=== PATIENT | female | born 1990 | race Caucasian/White ===

== ENCOUNTER 2016-10-02 08:35 | Emergency (ER) | payer MEDICAID ==
[2015-12-07 12:54] VITALS: BMI 35.4
[~2016-10-02 08:35] MED LIST: IBUPROFEN600 MG PO; PERCOCET 5-3251 TAB PO
[2016-10-02 09:13] LABS: BASOPHILS 0.1 % (0-2); EOSINOPHILS 0.9 % (0-7); HEMATOCRIT 38.4 % (36.0-48.0); HEMOGLOBIN 12.6 g/dL (12-16); IMMATURE GRANULOCYTES 0.3 % (0-5); LYMPHOCYTES 22.8 % (15-50); MCH 30.8 pg (26.0-34.0); MCHC 32.8 g/dL (31.0-37.0); MCV 93.9 fL (80.0-100.0); MEAN PLATELET VOLUME 9.2 fL (7.4-10.4); MONOCYTES 6.1 % (2-11); NEUTROPHILS 69.8 % (40-80); RBC 4.09 10x6/uL (4.00-5.40); RDW 13.4 % (11.5-14.5); WBC 10.8 10x3/uL (4.8-10.8)
[2016-10-02 09:16] LABS: PLATELET COUNT 609 10x3/uL (130-400)
[2016-10-02 09:20] LABS: HCG SERUM NEGATIVE (NEGATIVE)
[2016-10-02 09:25] LABS: ALBUMIN 3.2 g/dL (3.4-5.0); ALKALINE PHOSPHATASE 123 U/L (46-116); ALT (SGPT) 94 U/L (10-68); BILIRUBIN - TOTAL 0.35 mg/dL (0.2-1.3); CALC OSMOLALITY 277 mosm/kg (275-300); CALCIUM 8.7 mg/dL (8.5-10.1); CARBON DIOXIDE 26.6 mmol/L (21.0-32.0); CHLORIDE - SERUM 101 mmol/L (98-107); CREATININE - SERUM 0.9 mg/dL (0.6-1.3); GLUCOSE 125 mg/dL (74-106); POTASSIUM - SERUM 3.3 mmol/L (3.5-5.1); PROTEIN - SERUM 7.7 g/dL (6.4-8.2); SODIUM 139 mmol/L (136-145); UREA NITROGEN 11 mg/dL (7-18); eGFR NON AFRICAN AMERICAN 79 mL/min (90-120)
[2016-10-02 09:35] LABS: APPEARANCE CLOUDY (CLEAR); BILIRUBIN NEGATIVE (NEGATIVE); COLOR YELLOW (YELLOW); GLUCOSE NEGATIVE (NEGATIVE); KETONE NEGATIVE (NEGATIVE); LEUKOCYTE ESTERASE 1+ (NEGATIVE); NITRITE NEGATIVE (NEGATIVE); PROTEIN TRACE mg/dL (NEGATIVE); UROBILINOGEN NORMAL (NORMAL)
[2016-10-02 09:38] LABS: BACTERIA MODERATE /hpf (NONE SEEN); MUCUS >1+ /lpf (NONE SEEN)
[2016-10-02 09:44] LABS: PLATELET ESTIMATE DECREASED
== END 2016-10-02 10:35 | disposition home or self-care (01) ==
LOC: D.ER 08:35
PROVIDERS: Emergency Medicine
DX: R10.9 Unspecified abdominal pain (principal); N39.0 Urinary tract infection, site not specified; N20.1 Calculus of ureter; R11.0 Nausea; F17.200 Nicotine dependence, unspecified, uncomplicated

== ENCOUNTER → 2018-07-25 12:58 | Outpatient (CLI) | payer MEDICAID ==
[2015-12-07 12:54] VITALS: BMI 35.4
== END | disposition home or self-care (01) ==
LOC: D.LDO 12:58
PROVIDERS: ATTEND Obstetrics & Gynecology
DX: O36.8120 Decreased fetal movements, second trimester, not applicable or unspecified (principal); Z3A.27 27 weeks gestation of pregnancy

== ENCOUNTER → 2018-07-31 12:52 | Outpatient (CLI) | payer MEDICAID | END | disposition home or self-care (01) | LOC: D.LDO 12:52 | DX: O26.859 Spotting complicating pregnancy, unspecified trimester (principal); Z3A.00 Weeks of gestation of pregnancy not specified ==

== ENCOUNTER → 2018-09-18 16:18 | Outpatient (CLI) | payer MEDICAID ==
[2015-12-07 12:54] VITALS: BMI 35.4
[2018-09-18 16:48] LABS: APPEARANCE CLEAR (CLEAR); BILIRUBIN NEGATIVE (NEGATIVE); COLOR YELLOW (YELLOW); GLUCOSE NEGATIVE (NEGATIVE); KETONE NEGATIVE (NEGATIVE); NITRITE NEGATIVE (NEGATIVE); PROTEIN NEGATIVE (NEGATIVE); UROBILINOGEN NORMAL (NORMAL)
[2018-09-18 16:51] LABS: BACTERIA MODERATE /hpf (NONE SEEN); EPITHELIAL CELLS 0-5 /hpf (0-5); RED CELLS - URINE OCC /hpf (0-5); WHITE CELLS - URINE 0-5 /hpf (0-5)
== END | disposition home or self-care (01) ==
LOC: D.LDO 16:18
PROVIDERS: ATTEND Obstetrics & Gynecology
DX: O26.899 Other specified pregnancy related conditions, unspecified trimester (principal); Z3A.00 Weeks of gestation of pregnancy not specified

== ENCOUNTER → 2018-10-11 10:39 | Outpatient (CLI) | payer MEDICAID ==
[2015-12-07 12:54] VITALS: BMI 35.4
[2018-10-11 11:14] LABS: APPEARANCE CLEAR (CLEAR); BACTERIA FEW /hpf (NONE SEEN); BILIRUBIN NEGATIVE (NEGATIVE); COLOR YELLOW (YELLOW); EPITHELIAL CELLS OCC /hpf (0-5); GLUCOSE NEGATIVE (NEGATIVE); KETONE NEGATIVE (NEGATIVE); MUCUS <1+ /lpf (NONE SEEN); NITRITE NEGATIVE (NEGATIVE); PROTEIN NEGATIVE (NEGATIVE); RED CELLS - URINE RARE /hpf (0-5); SPECIFIC GRAVITY 1.005 (1.005-1.020); UROBILINOGEN NORMAL (NORMAL); WHITE CELLS - URINE OCC /hpf (0-5)
[2018-10-11 11:28] LABS: UDS - AMPHET NEGATIVE QUAL (NEGATIVE); UDS - BARB NEGATIVE QUAL (NEGATIVE); UDS - BENZO NEGATIVE QUAL (NEGATIVE); UDS - COCAINE NEGATIVE QUAL (NEGATIVE); UDS - OPIATE NEGATIVE QUAL (NEGATIVE); UDS - PCP NEGATIVE QUAL (NEGATIVE); UDS - THC NEGATIVE QUAL (NEGATIVE)
== END | disposition home or self-care (01) ==
LOC: D.LDO 10:39
PROVIDERS: ATTEND Student in an Organized Health Care Education/Training Program
DX: O26.899 Other specified pregnancy related conditions, unspecified trimester (principal); Z3A.00 Weeks of gestation of pregnancy not specified

== ENCOUNTER 2018-10-17 20:26 | Inpatient (IN) | payer MEDICAID ==
[~2018-10-17] VITALS: Ht 149.9 cm; Wt 71.7 kg
[2018-10-17 22:05] VITALS: BP 117/68; Ht 149.9 cm; Wt 71.7 kg
[2018-10-17 22:08] LABS: HEMOGLOBIN 11.6 g/dL (12-16); MCH 30.1 pg (26.0-34.0); MCHC 34.1 g/dL (31.0-37.0); MCV 88.1 fL (80.0-100.0); MEAN PLATELET VOLUME 9.6 fL (7.4-10.4); RBC 3.86 10x6/uL (4.00-5.40); RDW 13.6 % (11.5-14.5); WBC 8.2 10x3/uL (4.8-10.8)
[2018-10-18 07:05] VITALS: BP 105/67
--- NOTE | 2018-10-18 07:05 | NUR ---
RECEIVED PT SITTING UP IN BED. AWAKE. AAO X 3. VSS. HRRR WITHOUT AUDIBLE MURMUR. BBS CLEAR. BS X 4. ABDOMEN SOFT/NON-DISTENDED. FUNDUS FIRM AT U/1. RUBRA LOCHIA MOD AMT. NO CLOTS EXPRESSED. PERINEUM WITH SLIGHT EDEMA. NEG HOMANS' SIGN. PPP. NO EDEMA NOTED TO BLE. PIV SITE CLEAR TO LEFT HAND. NS WITH PITOCIN INFUSING AT 125 ML/HR. PT STATES CONTINUES NUMB FROM EPIDURAL. EPIDURAL OFF . SR UP X 2. CALL LIGHT IN REACH.
[2018-10-18 07:25] LABS: UDS - AMPHET NEGATIVE QUAL (NEGATIVE); UDS - BARB NEGATIVE QUAL (NEGATIVE); UDS - BENZO NEGATIVE QUAL (NEGATIVE); UDS - COCAINE NEGATIVE QUAL (NEGATIVE); UDS - OPIATE NEGATIVE QUAL (NEGATIVE); UDS - PCP NEGATIVE QUAL (NEGATIVE); UDS - THC NEGATIVE QUAL (NEGATIVE)
--- NOTE | 2018-10-18 09:24 | NUR ---
PIV CONVERTED TO SALINE LOCK. PT SITS UP ON SIDE OF BED. EPIDURAL CATH DC'D WITH BLACK TIP INTACT. PT AMBULATES TO BR. VOIDS 400 ML OF BLOOD-TINGED URINE. PERICARE DONE PER PT. PANTIES AND PAD ON. PT BACK TO BED. THERON ACTIVITY WELL.
--- NOTE | 2018-10-18 10:44 | NUR ---
PT C/O ABDOMINAL CRAMPING AND PAIN TO IV SITE OF "8" ON 0-10 PAIN SCALE. MOTRIN 600 MG GIVEN PO ORDERED. SL SITE CLEAR WITHOUT REDNESS, SWELLING OR DRAINAGE NOTED.
--- NOTE | 2018-10-18 11:48 | NUR ---
PT OOB AND AMB TO BR TO VOID. VOIDS 800 ML OF BLOOD-TINGED URINE. PERICARE DONE PER PT. PAD CHANGED. PT AMBULATES IN ROOM AT THIS TIME. SHOWER DECLINED AT THIS TIME.
--- NOTE | 2018-10-18 12:45 | NUR ---
PT SITTING UP IN BED. DID NOT EAT LUNCH. PT REQUESTS SANDWICH AND CHIPS FOR LUNCH. DIETARY MESSAGE SENT.
--- NOTE | 2018-10-18 13:30 | NUR ---
PT SITTING UP IN BED. CONSUMING LUNCH BROUGHT BY DIETARY. PT DENIES C/O OR NEEDS.
--- NOTE | 2018-10-18 14:15 | NUR ---
PT UP TO SHOWER. BED LINENS CHANGED. PT THERON WELL. VOIDS 500 ML OF BLOOD-TINGED URINE.
--- NOTE | 2018-10-18 15:20 | NUR ---
PT SITTING UP ON COUCH. INFANT. DENIES C/O OR NEEDS.
--- NOTE | 2018-10-18 16:53 | NUR ---
PT AMBULATORY IN ROOM. C/O ABDOMINAL CRAMPING OF "5" ON 0-10 PAIN SCALE. MOTRIN 600 MG GIVEN PO ORDERED.
--- NOTE | 2018-10-18 18:00 | NUR ---
PT TRANSFERED VIA AMBULATORY WITH FAMILY TO ROOM [id number]. PT TO BED. ORIENTED TO ROOM, BED, AND CALL LIGHT IN REACH.
--- NOTE | 2018-10-18 18:53 | NUR ---
PT SITTING UP IN BED . DENIES NEEDS.
--- NOTE | 2018-10-18 19:16 | NUR ---
PT REC'D SITTING ON EDGE OF BED CONVERSING WITH VISITORS. DENIES NEEDS AT THIS TIME. REPORTS THAT VISITORS WILL BE LEAVING SOON. WILL CONTINUE TO MONITOR AND ASSIST PRN.
[2018-10-18 19:57] VITALS: BP 124/74
--- NOTE | 2018-10-18 19:57 | NUR ---
SHIFT ASSESSMENT COMPLETED PER FLOWSHEET. VSS. FUNDUS FIRM, MIDLINE AND U1 WITH SCANT RUBRA, NO CLOTS NOTED. REPORTS THAT SHE IS VOIDING WITHOUT DIFFICULTY AND PASSING FLATUS. C/O HIP PAIN 7/10, CONSTANT ACHING AND "SOME CRAMPING BUT THE CRAMPING IS BEARABLE." WILL REPORT TO DR. VALADEZ. PT'S MOTHER AT BEDSIDE, SUPPORTIVE AND ATTENTIVE TO PT AND NEEDS. C/O OF STINGING WITH URINATION, PERIBOTTLE PROVIDED AND INSTRUCTED ON USED, VERBALIZES UNDERSTANDING, STATES THAT SHE HAS USED TO BOTTLE WITH PREVIOUS DELIVERIES AND WILL CALL FOR ASSISTANCE PRN. REPORTS THAT SHE HAS SHOWERED ON DAY SHIFT AND DOESN'T WANT TO SHOWER AGAIN. DENIES ADDITIONAL NEEDS AT THIS TIME. BED IN LOW POSITION WITH UPPER SIDE RAILS RAISED X2. POC DISCUSSED, VERBALIZES UNDERSTANDING AND DENIES NEEDS. CALL LIGHT AND PHONE WITHIN REACH.
--- NOTE | 2018-10-18 20:24 | NUR ---
DR. VALADEZ NOTIFIE OF PT C/O HIP PAIN FOLLOWING RECEIVING MOTRIN. ORDERS REC'D.
--- NOTE | 2018-10-18 20:41 | NUR ---
PT UPDATED ON POC. PAIN MED OPTIONS DISCUSSED WITH PT. REQUESTS TO TAKE NORCO 5/325 INSTEAD OF 10/325 D/T BEING CONCERNED THAT THE 10/325 WILL MAKE HER TO DROWSY TO CARE FOR INFANT. EDUCATED ON POSSIBLE SIDE EFFECTS, VERBALIZES UNDERSTANDING AND DENIES QUESTIONS. BED IN LOW POSITION WITH UPPER SIDE RAILS RAISED X2. CALL LIGHT AND PHONE WITHIN REACH. FOB AND PT'S MOTHER AT BEDSIDE, BOTH SUPPORTIVE AND ATTENTIVE TO PT AND INFANT NEEDS. RESTING QUIETLY IN OPEN CRIB. WILL CONTINUE TO MONITOR.
--- NOTE | 2018-10-18 21:34 | NUR ---
PAIN REASSESSMENT COMPLETED, 04/14. DENIES NEEDS. FAMILY MEMBERS AT BEDSIDE, SUPPORTIVE AND ATTENTIVE TO PT AND . BED IN LOW POSITION WITH UPPER SIDE RAILS RAISED X2. CALL LIGHT AND PHONE WITHIN REACH. WILL CONTINUE TO MONITOR.
--- NOTE | 2018-10-18 22:43 | NUR ---
SITTING UP IN BED BOTTLE FEEDING . AMBIEN GIVEN PER REQUEST. PT REPORTS THAT SHE IS GOING TO SEND TO NBN ONCE SHE COMPLETED BOTTLE FEEDING FOR THE NIGHT. INSTRUCTED ON FALL PRECAUTIONS AND CALLING FOR ASSISTANCE WITH PRN, VERBALIZES UNDERSTANDING. PT'S MOTHER AND FOB AT BEDSIDE, SUPPORTIVE AND ATTENTIVE TO PT AND INFANT NEEDS. BED IN LOW POSITION WITH UPPER SIDE RAILS RAISED X2. CALL LIGHT AND PHONE WITHIN REACH. WILL CONTINUE TO MONITOR.
--- NOTE | 2018-10-19 00:13 | NUR ---
LAYING ON RIGHT SIDE RESTING WITH EYES CLOSED. RESPIRATIONS REGULAR AND UNLABORED, NO S/S OF DISTRESS NOTED. INFANT IN NBN. PT'S MOTHER RESTING ON COUCH AT BEDSIDE. BED IN LOW POSITION WITH UPPER SIDE RAILS RAISED X2. CL AND PHONE WITHIN REACH. WILL CONTINUE TO MONITOR.
--- NOTE | 2018-10-19 00:21 | NUR ---
LAB AT BEDSIDE.
[2018-10-19 00:29] LABS: BASOPHILS 0.1 % (0-2); EOSINOPHILS 0.2 % (0-7); HEMATOCRIT 31.7 % (36.0-48.0); HEMOGLOBIN 10.8 g/dL (12-16); IMMATURE GRANULOCYTES 0.4 % (0-5); LYMPHOCYTES 21.4 % (15-50); MCH 29.8 pg (26.0-34.0); MCHC 34.1 g/dL (31.0-37.0); MCV 87.6 fL (80.0-100.0); MEAN PLATELET VOLUME 9.4 fL (7.4-10.4); MONOCYTES 7.2 % (2-11); NEUTROPHILS 70.7 % (40-80); PLATELET COUNT 221 10x3/uL (130-400); RBC 3.62 10x6/uL (4.00-5.40); RDW 13.6 % (11.5-14.5)
[2018-10-19 00:30] LABS: WBC 13.2 10x3/uL (4.8-10.8)
--- NOTE | 2018-10-19 02:39 | NUR ---
LAYING ON LEFT SIDE RESTING QUIETLY WITH EYES CLOSED. RESP REGULAR AND UNLABORED, NO S/S OF DISTRESS NOTED. BED IN LOW POSITION WITH UPPER SIDE RAILS RAISED X2. CALL LIGHT AND PHONE WITHIN REACH. WILL CONTINUE TO MONITOR AND ASSIST PRN.
--- NOTE | 2018-10-19 04:51 | NUR ---
RESTING QUIETLY LAYING ON RIGHT SIDE. RESP REGULAR AND UNLABORED, NO S/S OF DISTRESS NOTED. BED IN LOW POSITION WITH UPPER SIDE RAILS RAISED X2. CALL LIGHT AND PHONE WITHIN REACH.
--- NOTE | 2018-10-19 05:50 | NUR ---
PT RINGS CALL LIGHT REQUESTING PAIN MEDICATION. THIS RN TO BEDSIDE W/MOTRIN AND NORCO. PT REQUEST TO RECEIVE BOTH MEDICATIONS AT THIS TIME. MOTRIN 600MG AND NORCO 5/325MG PO GIVEN. SEE EMAR. FRESH ICE WATER SERVED. PT UP TO VOID. DENIES ADDITIONAL NEEDS AT THIS TIME.
--- NOTE | 2018-10-19 06:26 | NUR ---
ROUNDS MADE. PT PLAYING ON CELL PHONE. LT HAND PIV REMOVED PER PT REQUEST, STATES THAT SITE IS SORE, VERBALIZES UNDERSTANDING THAT IF IV ACCESS IS NEEDED PIV WOULD HAVE TO BE RESTARTED, TIP INTACT, BANDAID PLACED OVER SITE. BED IN LOW POSITION WITH UPPER SIDE RAILS RAISED X2. CALL LIGHT AND PHONE WITHIN REACH. WILL CONTINUE TO MONITOR.
--- NOTE | 2018-10-19 06:40 | NUR ---
PAIN REASSESSMENT COMPLETED, 06/12. DENIES NEEDS AT THIS TIME. BED IN LOW POSITION WITH UPPER SIDE RAILS RAISED X2. CALL LIGHT AND PHONE WITHIN REACH. WILL CONTINUE TO MONITOR.
--- NOTE | 2018-10-19 07:25 | NUR ---
ASSUMED CARE OF THIS PATIENT AT THIS TIME. GETTING READY TO BREASTFEED . WILL COMPLETE SHIFT ASSESSMENT AFTER BREAKFAST. DENIES PAIN OR THOUGHTS OF HURTING SELF. FOB IN ROOM. NO SPECIFIC REQUESTS AT THIS TIME. CURRENTLY NON-SMOKER, A+ RUBELLA IMMUNE, GBS +, LAST TDAP RECEIVED 12/08/15 PER IMMUNIZATIONS RECORDS. CALL RAILS UP X 2, CALL LIGHT IN REACH. TO CALL IF ANYTHING NEEDED. UP AD VIK.
[2018-10-19 08:11] LABS: RAPID PLASMA REAGIN Non Reactive (Non Reactive)
[2018-10-19 08:44] VITALS: BP 115/70
--- NOTE | 2018-10-19 08:44 | NUR ---
SHIFT ASSESSMENT COMPLETED. IN NURSERY FOR PEDIATRIC EVALUATIONS.
--- NOTE | 2018-10-19 08:58 | NUR ---
INFANT RETURNED TO ROOM, PT AND INFANT INDENTIFIERS COMPLETED. DR VALADEZ TO ROOM TO VISIT PATIENT.
--- NOTE | 2018-10-19 10:50 | NUR ---
AMBULATING IN [place]. HEATING UP DONUTS IN [place]. DENIES NEEDING ANYTHING. PT MOTHER IN ROOM WITH .
--- NOTE | 2018-10-19 11:45 | NUR ---
REQUESTED PAIN MEDICATION FOR 6/10 ABDOMINAL CRAMPING AND PERINEUM "TINGLING". NORCO 5 MG AND MOTRIN 600 MG GIVEN PO FOR RELIEF OF PAIN. SITTING UP IN BED HOLDING INFANT. DENIES NEEDING ANYTHING ELSE. SIDE RAILS UP X 2, CALL LIGHT IN REACH.
--- NOTE | 2018-10-19 12:33 | NUR ---
SITTING UP ON EDGE OF BED LOOKING AT CELL PHONE. REGULAR DIET AT BEDSIDE. SAYS HER PAIN IS MUCH BETTER 2/10. DENIES NEEDING ANYTHING AT THIS TIME. VISITOR X 1 IN ROOM. SIDERAILS UP X 2, CALL LIGHT IN REACH.
--- NOTE | 2018-10-19 14:43 | NUR ---
SLEEPING ON RIGHT SIDE. RESPIRATIONS EVEN. SIDERAILS UP X 2, CALL LIGHT IN REACH. VISITOR X 1 ON COUCH, INFANT IN CRIB.
--- NOTE | 2018-10-19 16:53 | NUR ---
SITTING UP IN BED HOLDING INFANT, GETTING READY TO EAT DINNER. JUST SHOWERED. REQUESTED ADDITIONAL PADS AND SHAKIR-PANTS WHICH WERE GIVEN. NO ADDITIONAL REQUESTS. DECLINED LINEN CHANGE. SIDERAILS UP X 2, CALL IN REACH. VISITOR X 1 IN ROOM.
--- NOTE | 2018-10-19 19:23 | NUR ---
BEDSIDE REPORT REC'D FROM Dayan WADDELL RN. PT UP AT OPEN CRIB CHANGING 'S DIAPER AND PREPARING TO BOTTLE FEED. DENIES PAIN AND NEEDS AT THIS TIME. INSTRUCTED TO CALL RN FOLLOWING FEEDING INFANT. PT REPORTS THAT SHE IS GOING TO START TRYING TO PUMP WHEN SHE GETS HOME, ENCOURAGED TO CONTINUE TO PUT BABY TO BREAST PRIOR TO OFFERING BOTTLE AND EDUCATED ON BF, VERBALIZES UNDERSTANDING AND STATE THAT SHE WILL CONTINUE TO PUT BABY TO BREAST. DENIES NEEDS. PT'S MOTHER AT BEDSIDE, SUPPORTIVE AND ATTENTIVE TO PT AND NEEDS. BED IN LOW POSITION WITH UPPER SIDE RAILS RAISED X2. CALL LIGHT AND PHONE WITHIN REACH. WILL CONTINUE TO MONITOR.
[2018-10-19 20:07] VITALS: BP 111/73
--- NOTE | 2018-10-19 20:07 | NUR ---
SHIFT ASSESSMENT COMPLETED PER FLOWSHEET. VSS. FUNDUS FIRM, MIDLINE AND U2 WITH SCANT RUBRA LOCHIA, NO CLOTS NOTED. C/O HIP, ABD CRAMPING, AND PERINEAL ACHING 10/12, NORCO AND MOTRIN GIVEN PER ORDER AND PT REQUEST. REPORTS THAT SHE IS VOIDING WITHOUT DIFFICULTY, PASSING FLATUS AND HAD A BM TODAY. DENIES ADDITIONAL NEEDS. REPORTS THAT SHE SHOWERED TODAY AND HER LINENS HAVE BEEN CHANGED. DENIES ADDITIONAL NEEDS. ICE WATER PROVIDED. ICE WATER PROVIDED. YONATHAN MORTENSEN RN AT BEDSIDE TO ASSIST WITH BF.
--- NOTE | 2018-10-19 20:55 | NUR ---
PAIN REASSESSMENT COMPLETED, 04/14. DENIES NEEDS AT THIS TIME. WATCHING TV AND CONVERSING WITH FAMILY MEMBERS. BED IN LOW POSITION WITH UPPER SIDE RAILS RAISED X2. CALL LIGHT AND PHONE WITHIN REACH.
--- NOTE | 2018-10-19 21:37 | NUR ---
AMBULATORY ON UNIT. STEADY GAIT NOTED. DENIES PAIN AND NEEDS.
--- NOTE | 2018-10-19 22:17 | NUR ---
REPORTS THAT INFANT VOIDED ON SHEETS, LINENS CHANGED. DENIES NEEDS. EATING MEAL BROUGHT BY FAMILY AND CONVERSING WITH FAMILY MEMBERS. BED IN LOW POSITION AND CALL LIGHT PLACED WITHIN PT REACH.
--- NOTE | 2018-10-19 23:42 | NUR ---
PETAR GIVEN PER PT REQUEST. SITTING UP IN BED BF . DENIES ADDITIONAL NEEDS AND PAIN AT THIS TIME. BED IN LOW POSITION WITH UPPER SIDE RAILS RAISED X2. CALL LIGHT AND PHONE WITHIN REACH. WILL CONTINUE TO MONITOR AND ASSIST PRN.
--- NOTE | 2018-10-20 00:55 | NUR ---
AMBULATORY TO DESK, REQUESTS "SOMETHING TO HELP WITH CONSTIPATION." REPORTS THAT SHE HAS TRIED TO HAVE BM BUT HAS BEEN UNABLE TO HAVE ONE. ORDERS REC'D FOR MILK OF MAG.
--- NOTE | 2018-10-20 01:08 | NUR ---
SHERLYN, MUSIC THEORY TEACHER NOTIFIED OF ORDER FOR MILK OF MAG AND NEEDING OVERRIDE, PER SHERLYN SHE WAS IN ICU WITH A SITUATION AND WILL COME TO UNIT [facility] FOR MED. PT NOTIFIED AND VERBALIZES UNDERSTANDING. OFFERED PRUNE JUICE, PT ACCEPTS AND PROVIDED.
--- NOTE | 2018-10-20 02:07 | NUR ---
BOTTLE PROVIDED PER FOB'S REQUEST. PT LAYING ON RIGHT SIDE RESTING WITH EYES CLOSED. RESP REGULAR AND UNLABORED, NO S/S OF DISTRESS NOTED. BED IN LOW POSITION WITH UPPER SIDE RAILS RAISED X2. CALL LIGHT AND PHONE WITHIN REACH. FOB ATTENTIVE TO PT AND NEEDS.
--- NOTE | 2018-10-20 03:20 | NUR ---
MILK OF MAG GIVEN PER ORDER AND PT REQUEST. DENIES PAIN AND ADDITIONAL NEEDS. EDUCATED ON MED AND POSSIBLE SIDE EFFECTS, VERBALIZES UNDERSTANDING. IN OPEN CRIB AT BEDSIDE, RESTING QUIETLY. BED IN LOW POSITION WITH UPPER SIDE RAILS RAISED X2. CALL LIGHT AND PHONE WITHIN REACH.
--- NOTE | 2018-10-20 04:39 | NUR ---
LAYING ON LEFT SIDE RESTING WITH EYES CLOSED. RESP REGULAR AND UNLABORED, NO S/S OF DISTRESS NOTED. RESTING QUIETLY IN OPEN CRIB AT BEDSIDE. SIGNIFICANT OTHER AT BEDSIDE, SUPPORTIVE AND ATTENTIVE TO PT AND . BED IN LOW POSITION WITH UPPER SIDE RAILS RAISED X2. CALL LIGHT AND PHONE WITHIN REACH. WILL CONTINUE TO MONITOR.
--- NOTE | 2018-10-20 06:25 | NUR ---
C/O ABD CRAMPING AND HIP ACHING 08/12. REQUESTS NORCO AND MOTRIN, GIVEN PER ORDER AND PT REQUEST. ICE WATER PROVIDED. DENIES ADDITIONAL NEEDS. PREPARING TO BF . WILL CONTINUE TO MONITOR AND ASSIST PRN.
[2018-10-20 07:20] VITALS: BP 124/68
--- NOTE | 2018-10-20 10:04 | NUR ---
DR VALADEZ VISITED. [facility] HOME. VISITORS X 2 IN ROOM. SITTING UP IN BED HOLDING IN ARMS. READY TO GO HOME.
--- NOTE | 2018-10-20 11:11 | NUR ---
SITTING UP IN BED TALKING TO VISITORS. REQUESTED PAIN MEDICATION FOR CRAMPING AND RIGHT HIP PAIN. HX OF HIP PAIN SINCE LAST DELIVERY. NORCO 5 MG GIVEN PO FOR 5/10 PAIN RELIEF. NO ADDITIONAL REQUESTS. WAITING ON PEDS FOR DISCHARGE.
--- NOTE | 2018-10-20 12:51 | NUR ---
SITTING UP IN BED HOLDING AND EATING LUNCH. SAYS HER PAIN IS "MUCH BETTER" NOW A 3/10 DENIES NEEDING ANYTHING. VISITOR X 1 IN ROOM. SIDE RAILS UP X 2, CALL LIGHT IN REACH. TO CALL IF ANYTHING IS NEEDED.
--- NOTE | 2018-10-20 14:13 | NUR ---
SITTING UP IN BED. INFANT IN NURSERY FOR PEDIATRIC EVALUATION. DC TEACHING COMPLETED TO INCLUDING ROUTINE PP CARE, PP DEPRESSION, DANGER SIGNS, S&S INFECTION, /BREASTCARE, SMOKING CESSATION (ENCOURAGED TO CONTINUE TO NOT TO SMOKE), AND F/U. VERBALIZED UNDERSTANDING, NO SPECIFIC QUESTIONS. WILL DC HOME WHEN DC'D.
--- NOTE | 2018-10-20 16:00 | NUR ---
DC'D VIA WHEELCHAIR TO CAR. IN CARSEAT. ALL BELONGINGS REMOVED FROM ROOM. HAS DC WRITTEN INSTRUCTIONS AND F/U INFORMATION. FOB AND FAMILY WITH PT.
== END 2018-10-20 16:00 | disposition home or self-care (01) | DRG 807 ==
LOC: D.LD 20:26
PROVIDERS: Student in an Organized Health Care Education/Training Program; ADMIT Obstetrics & Gynecology; ATTEND Obstetrics & Gynecology
PROC: 10E0XZZ Delivery of Products of Conception, External Approach (ICD-10-PCS; principal; 2018-10-18)
DX: O99.824 Streptococcus B carrier state complicating childbirth (principal); Z37.0 Single live birth; Z3A.39 39 weeks gestation of pregnancy; O71.89 Other specified obstetric trauma; Z87.891 Personal history of nicotine dependence